=== PATIENT | male | born 1975 | race Caucasian/White ===

== ENCOUNTER 2023-04-24 10:16 | Emergency (ER) | payer SELFPAY ==
[~2023-04-24] VITALS: Ht 180.3 cm; Wt 75.7 kg
[2023-04-24 10:21] VITALS: BP 143/73
--- NOTE | 2023-04-24 10:24 | NUR ---
pt ambulatory to bed 09
--- NOTE | 2023-04-24 10:45 | NUR ---
PT. IN ROOM 9, DR. 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
[2023-04-24 10:56] LABS: BASOPHILS # (AUTO) 0.1 K/uL (0.00-0.22); EOSINOPHILS # (AUTO) 0.3 K/uL (0-0.4); EOSINOPHILS % (AUTO) 3.3 % (0.0-4.0); HEMATOCRIT 44.5 % (36-52); HEMOGLOBIN 15.3 g/dL (12.0-18.0); LYMPHOCYTES # (AUTO) 2.3 K/uL (2.0-11.5); LYMPHOCYTES % (AUTO) 27.9 % (20.5-51.1); MEAN CORPUSCULAR HEMOGLOBIN 30 pg (27-31); MEAN CORPUSCULAR HGB CONC 34 g/dL (33-37); MEAN CORPUSCULAR VOLUME 88.2 fL (80-94); MONOCYTES # (AUTO) 0.6 K/uL (0.8-1.0); MONOCYTES % (AUTO) 7.2 % (1.7-9.3); NEUTROPHILS % (AUTO) 60.6 % (42.2-75.2); PLATELET COUNT (AUTO) 229 K/uL (140-450); RED BLOOD CELL COUNT(AUTO) 5.04 MIL/uL (4.20-6.10); RED CELL DISTRIBUTION WIDTH 13.4 % (11.6-13.7); WHITE BLOOD COUNT (AUTO) 8.2 K/uL (4.8-10.8)
--- NOTE | 2023-04-24 10:56 | NUR ---
PATIENT TAKEN TO CT.
--- NOTE | 2023-04-24 11:05 | NUR ---
PT. RETURNED FROM CT TO BED 9, NO COMPLICATIONS NOTED AT THE MOMENT WILL BE WAITING FOR RESULTS
[2023-04-24 11:12] LABS: ALBUMIN 4.4 g/dL (3.4-5.0); ANION GAP 14.2 (8-16); CARBON DIOXIDE 25.3 mmol/L (21-32); CREATININE 0.9 mg/dL (0.6-1.3); POTASSIUM 3.5 mmol/L (3.5-5.1); TOTAL BILIRUBIN 1.9 mg/dL (0.0-1.0)
[2023-04-24 11:18] VITALS: BP 127/74
[2023-04-24] MEDS ORDERED: IBUP-2213 PO (11:55)
== END 2023-04-24 12:24 | disposition home or self-care (01) ==
LOC: MED 10:16
DX: R10.84 Generalized abdominal pain (principal)
CPT/HCPCS: 36415; 80053; 83690; 85025; 99284